=== PATIENT | male | born 1990 | race Caucasian/White ===

== ENCOUNTER 2021-06-10 14:17 | Emergency (ER) | payer MEDICAID, BC ==
[~2021-06-10] VITALS: Ht 175.3 cm; Wt 97.5 kg
[2021-06-10 14:26] VITALS: BP 145/88
--- NOTE | 2021-06-10 14:31 | NUR ---
PT SENT TO LOBBY
[2021-06-10] MEDS ORDERED: ONDANSETRON 4 MG/2 ML VIAL IVP ONE (14:35)
[2021-06-10] MEDS ORDERED: NACL 0.9% 1,000 ML IV SCH (14:35)
[2021-06-10 15:06] LABS: BASOPHILS # (AUTO) 0.1 K/uL (0.00-0.22); BASOPHILS % (AUTO) 0.3 % (0.0-2.0); EOSINOPHILS % (AUTO) 0.1 % (0.0-4.0); HEMATOCRIT 48.4 % (36-52); HEMOGLOBIN 17.1 g/dL (12.0-18.0); LYMPHOCYTES # (AUTO) 0.9 K/uL (2.0-11.5); LYMPHOCYTES % (AUTO) 5.2 % (20.5-51.1); MEAN CORPUSCULAR HEMOGLOBIN 32 pg (27-31); MEAN CORPUSCULAR HGB CONC 35 g/dL (33-37); MEAN CORPUSCULAR VOLUME 89.4 fL (80-94); MONOCYTES # (AUTO) 1.1 K/uL (0.8-1.0); MONOCYTES % (AUTO) 6.4 % (1.7-9.3); NEUTROPHILS # (AUTO) 15.7 K/uL (1.8-7.7); PLATELET COUNT (AUTO) 431 K/uL (140-450); RED BLOOD CELL COUNT(AUTO) 5.41 MIL/uL (4.20-6.10); RED CELL DISTRIBUTION WIDTH 12.2 % (11.6-13.7); WHITE BLOOD COUNT (AUTO) 17.9 K/uL (4.8-10.8)
[2021-06-10 15:20] LABS: ANION GAP 15.1 (8-16); CREATININE 1.2 mg/dL (0.6-1.3); POTASSIUM 3.1 mmol/L (3.5-5.1); TOTAL BILIRUBIN 1.6 mg/dL (0.0-1.0)
--- NOTE | 2021-06-10 15:52 | NUR ---
PATIENT WHEELCHAIR ASSISTED TO BED 1 AT THIS TIME.
--- NOTE | 2021-06-10 15:55 | NUR ---
30 y/o M BIB cousin c/o weakness and nausea, vomiting x 3 days. Patient A&Ox4, wheelchair assisted, states symptoms began on and has been worsening. Patient reports epigastric pain 8/10, sharp/constant, non-radiating. Epigastric and RLQ region tender to palpation. Patient reports he feels weak and dizzy, SOB after having bowel movements. Pt also reports intermittent chest pain, however, denies CP at this time. Reports dry cough x 3 days. States 4 episodes of vomiting today with onset of blood in vomit beginning today. Patient denies fever, chills, dysuria, back pain, headache. Pt denies any medications prior to arrival. Pt also states new onset of seizures 1 year ago during his and last seizure approximately 4 months ago. States he is not on any medications. Bowel sounds normoactive x 4 quadrants. Lung sounds CTA. Pt placed into a gown and laboratory monitor in place. Bed locked in lowest position, side rails x 1, call light in reach. PMH/Sx/Meds: Seizures, (-) meds NK
--- NOTE | 2021-06-10 15:55 | NUR ---
[facility] in [facility] - 06/10/21 at 1604 by AMAYA pATIENT WHEELCHAIR ASSISTED TO BED 01 ACCOMPANIED BY DAV
[2021-06-10] MEDS ORDERED: ONDANSETRON 4 MG/2 ML VIAL ONE (16:06)
--- NOTE | 2021-06-10 16:10 | NUR ---
Dr. Mccullough is evaluating patient at bedside
--- NOTE | 2021-06-10 16:15 | NUR ---
CT consent form signed
--- NOTE | 2021-06-10 16:50 | NUR ---
Pt transported to CT from bed 1.
--- NOTE | 2021-06-10 17:01 | NUR ---
Pt returned from CT and placed back onto cafeteria monitor. States nausea + vomiting, emesis bag provided. Addendum: 06/10/21 at 1701 by AMAYA BED 11.
--- NOTE | 2021-06-10 17:22 | NUR ---
Urinal provided at bedside
[2021-06-10] MEDS ORDERED: NACL 0.9% 1,000 ML IV ONE (18:10)
[2021-06-10] MEDS ORDERED: PROCHLORPERAZINE 10 MG/2 ML VIAL IVP ONE (18:10)
[2021-06-10] MEDS ORDERED: PANTOPRAZOLE 40 MG INJ VIAL IVP ONE (18:10)
[2021-06-10] MEDS ORDERED: diphenhydrAMINE 50 MG/ML VIAL IVP ONE (18:10)
--- NOTE | 2021-06-10 18:15 | NUR ---
Patient states slight nausea. Dr. Mccullough made aware
--- NOTE | 2021-06-10 18:25 | NUR ---
Dr. Mccullough is reevaluating patient at bedside
--- NOTE | 2021-06-10 19:31 | NUR ---
Report and transfer of care endorsed to JULIANNA Denson.
[2021-06-10] MEDS ORDERED: FAMO-92 PO (20:33)
[2021-06-10] MEDS ORDERED: ONDA-188 SL (20:33)
--- NOTE | 2021-06-10 20:40 | NUR ---
IV removed, catheter intact and site benign. Applied folded 4x4 gauze and tape to stop bleeding.
[2021-06-10 20:42] VITALS: BP 152/92
--- NOTE | 2021-06-10 20:42 | NUR ---
Patient discharged with v/s stable. Written and verbal after care instructions about gastritis and cyclic vomiting syndrome were given and explained. Patient alert, oriented and verbalized understanding of instructions. Ambulatory with steady gait. All questions addressed prior to discharge. ID band removed. Patient advised to follow up with PMD. Rx of Zofran and Pepcid given. Patient educated on indication of medication including possible reaction and side effects. Opportunity to ask questions provided and answered.
== END 2021-06-10 20:42 | disposition home or self-care (01) ==
LOC: MED 14:17
DX: A08.4 Viral intestinal infection, unspecified (principal); E86.0 Dehydration; R00.0 Tachycardia, unspecified; Z79.899 Other long term (current) drug therapy
CPT/HCPCS: 36415; 74177; 80053; 81002; 83605; 83690; 85025; 87040; 96361; 96374; 96375; 99285; C9113; J0780; J1200; J2405; J7030; Q9967